=== PATIENT | male | born 1980 | race Caucasian/White ===

== ENCOUNTER 2017-08-18 13:00 | Outpatient (RCR) | payer BC | END 2017-08-19 | LOC: PT 13:00 | PROVIDERS: ATTEND Family Medicine | DX: M53.3 Sacrococcygeal disorders, not elsewhere classified (principal); M62.81 Muscle weakness (generalized) ==

== ENCOUNTER 2017-09-15 13:00 | Outpatient (RCR) | payer BC | END 2017-09-16 | LOC: PT 13:00 | PROVIDERS: ATTEND Family Medicine | DX: M53.3 Sacrococcygeal disorders, not elsewhere classified (principal); M62.81 Muscle weakness (generalized) ==